=== PATIENT | male | born 1975 | race Caucasian/White ===

== ENCOUNTER 2017-09-13 10:03 | Emergency (ER) | payer BC ==
[2017-09-13] MEDS ORDERED: Sodium Chloride 0.9% 10 ML Syringe FLUSH PRN (10:19)
[2017-09-13] MEDS ORDERED: Vancomycin 1.75 GM in Sodium Chloride 0.9% 500 ML IV ONE (10:19)
--- NOTE | 2017-09-13 11:18 | EDM.PDOC ---
Scribed by Anika Sparrow 09/13/17 1027 for Hayden Carlton PA ED HPI GENERAL MEDICAL PROBLEM - General Chief Complaint: Skin Complaint Stated Complaint: RT HAND Time Seen by Provider: 09/13/17 10:10 Source of Information: Reports: Patient, RN, RN Notes Reviewed History Limitations: Reports: No Limitations - History of Present Illness INITIAL COMMENTS - FREE TEXT/NARRATIVE: Patient presents with right hand 4 to 5 MCP joint that is erythematous and with increased pain. He has a healing abrasion to the area. Symptoms started yesterday. No known trauma. Onset Date: 09/12/17 Duration: Getting Worse Location: Reports: Upper Extremity, Right Quality: Reports: Ache Severity: Moderate Improves with: Reports: None Worsens with: Reports: None Associated Symptoms: Reports: No Other Symptoms - Related Data Allergies Allergy/AdvReac Type Severity Reaction Status Date / Time No Known Allergies Allergy Verified 09/13/17 10:10 Home Meds: Home Meds Simvastatin [Zocor] 1 tab PO DAILY 09/13/17 [History] ED ROS GENERAL - Review of Systems Review Of Systems: ROS reveals no pertinent complaints other than HPI. ED EXAM, SKIN/RASH Exam: See Below Exam Limited By: No Limitations General Appearance: Alert, WD/WN, No Apparent Distress Eye Exam: Bilateral Eye: Normal Inspection Ears: Normal External Exam, Normal Canal, Hearing Grossly Normal, Normal TMs Nose: Normal Inspection, Normal Mucosa, No Blood Throat/Mouth: Normal Inspection, Normal Lips, Normal Teeth, Normal Gums, Normal Oropharynx, Normal Voice, No Airway Compromise Head: Atraumatic, Normocephalic Neck: Normal Inspection, Supple, Non-Tender, Full Range of Motion Respiratory/Chest: No Respiratory Distress, Lungs Clear, Normal Breath Sounds, No Accessory Muscle Use, Chest Non-Tender Cardiovascular: Normal Peripheral Pulses, Regular Rate, Rhythm, No Edema, No Gallop, No JVD, No Murmur, No Rub GI/Abdominal: Normal Bowel Sounds, Soft, Non-Tender, No Organomegaly, No Distention, No Abnormal Bruit, No Mass (Male) Exam: Deferred Rectal (Males) Exam: Deferred Back Exam: Normal Inspection, Full Range of Motion, NT Extremities: Other (see skin) Neurological: Alert, Oriented, CN II-XII Intact, Normal Cognition, Normal Gait, Normal Reflexes, No Motor/Sensory Deficits Psychiatric: Normal Affect Skin: Other (erythema right 4 and 5 MCP with swelling to the area.) Lymphatic: No Adenopathy Course - Vital Signs Last Recorded V/S: Last Vital Signs Temp 37.0 C 09/13/17 10:05 Pulse 64 09/13/17 10:05 Resp 18 09/13/17 10:05 BP 135/91 H 09/13/17 10:05 Pulse Ox 98 09/13/17 10:05 - Orders/Labs/Meds Orders: Active Orders 24 hr Category Date Time Status Sodium Chloride 0.9% [Saline Flush] Med 09/13/17 10:19 Ordered 10 ml FLUSH ASDIRECTED PRN Vancomycin 1.75 gm Med 09/13/17 10:19 Ordered Sodium Chloride 0.9% [Normal Saline] 500 ml IV ONETIME Saline Lock Insert [OM.PC] Routine Oth 09/13/17 10:19 Ordered Medication Orders Vancomycin HCl 1.75 gm/ Sodium (Chloride) 500 mls @ 334 mls/hr IV ONETIME ONE Stop: 09/13/17 11:48 Last Admin: 09/13/17 10:40 Dose: 334 mls/hr Sodium Chloride (Saline Flush) 10 ml FLUSH ASDIRECTED PRN PRN Reason: Keep Vein Open Last Admin: 09/13/17 10:41 Dose: 10 ml Meds: Medications Generic Name Dose Route Start Last Admin Trade Name Freq PRN Reason Stop Dose Admin Vancomycin HCl 1.75 gm/ Sodium 500 mls @ 334 mls/hr 09/13/17 10:19 09/13/17 10:40 Chloride IV 09/13/17 11:48 334 mls/hr ONETIME ONE Administration Sodium Chloride 10 ml 09/13/17 10:19 09/13/17 10:41 Saline Flush FLUSH 10 ml ASDIRECTED PRN Administration Keep Vein Open Departure - Departure Time of Disposition: 12:00 Disposition: Home, Self-Care 01 Condition: Fair Clinical Impression: Cellulitis of right hand - Discharge Information *PRESCRIPTION DRUG MONITORING PROGRAM REVIEWED*: Not Applicable *COPY OF PRESCRIPTION DRUG MONITORING REPORT IN PATIENT OREN: Not Applicable Instructions: Cellulitis, Adult, [id number] Forms: ED Department Discharge Care Plan Goals: The patient was advised of the examination results during the visit. The patient was given an IV dose of Vancomycin while in the ED. The patient was discharged with a script for Keflex (500 mg) #40 to take 1 by mouth 4 times per day for 10 days. If the patient has any additional symptoms or concerns, the patient should either visit his primary care facility or return to the emergency department. - My Orders Last 24 Hours: My Active Orders 09/13/17 10:19 Sodium Chloride 0.9% [Saline Flush] 10 ml FLUSH ASDIRECTED PRN Vancomycin 1.75 gm Sodium Chloride 0.9% [Normal Saline] 500 ml IV ONETIME Saline Lock Insert [OM.PC] Routine - Assessment/Plan Last 24 Hours: My Active Orders 09/13/17 10:19 Sodium Chloride 0.9% [Saline Flush] 10 ml FLUSH ASDIRECTED PRN Vancomycin 1.75 gm Sodium Chloride 0.9% [Normal Saline] 500 ml IV ONETIME Saline Lock Insert [OM.PC] Routine I have read and agree with the documentation that has been completed regarding this visit. By signing this record, I attest that the documentation was completed in my physical presence and is an accurate record of the encounter.
[2017-09-13] MEDS ORDERED: diphenhydrAMINE 50 MG Cap PO ONE (11:53)
== END 2017-09-13 13:27 | disposition home or self-care (01) ==
LOC: DL.ED 10:03
DX: L03.113 Cellulitis of right upper limb (principal)
CPT/HCPCS: 96365; 96366; 99283; J3370; J7040; J7050; Q0163